=== PATIENT | female | born 1955 | race African-American/Black ===

== ENCOUNTER 2017-04-21 00:23 | Emergency (ER) | payer OTHER ==
[~2017-04-21] VITALS: Ht 154.9 cm; Wt 72.6 kg
[~2017-04-21 00:23] MED LIST: ALBUTEROL; BACITRACIN15 GM TOPIC; BACTRIM-DS1 EA ORAL; BACTRIM-DS1 EA PO; DYAZIDE1 CAP ORAL; GABAPENTIN800 MG ORAL; GLIPIZIDE5 MG ORAL; IBUPROFEN600 MG ORAL; LISINOPRIL20 MG ORAL; METFORMIN HCL500 M1 ORAL; NIFEDICAL XL30 MG ORAL; NORCO 10-325 T1 EACH ORAL; NORCO 5-325 TA1 EACH ORAL; UNOBMED; VALIUM10 MG ORAL; VENTOLIN HFA18 GM INH
[2017-04-21] MEDS ORDERED: HYDROmorphone 1mg/ml Carpuject IM ONE (01:15)
[2017-04-21] MEDS ORDERED: DURAGESIC1 EAC2 TDERMAL (02:24)
--- NOTE | 2017-04-21 02:24 | Emergency Room Report ---
History of Present Illness General Chief Complaint: Lower Extremity Injury Source: Patient Present Illness HPI Is a 61-year-old female with history of diabetes, hypertension, degenerative disc disease. She has a history of chronic pain and is on Finley and gabapentin. He presents with chief complaint of severe right leg pain. She was bending over and felt pain from her back going down her right leg. Pain is severe 10 out of 10. No relief with Finley or gabapentin. No incontinence of bowel or urine. Does have a history of chronic pain this is worse than before. No other complaint. No trauma. Allergies: Coded Allergies: ACETAMINOPHEN (Verified Allergy, Severe, Anaphylaxis, 07/09/12) CODEINE (Verified Allergy, Severe, Anaphylaxis, 07/09/12) HYDROCODONE BIT (Verified Allergy, Severe, Anaphylaxis, 07/09/12) IBUPROFEN (Verified Allergy, Severe, 03/12/13) PENICILLINS (Verified Allergy, Severe, Anaphylaxis, 07/09/12) TRAMADOL (Verified Allergy, Severe, 03/12/13) Patient History Past Medical History: see triage record, old chart reviewed, DM, HTN Past Surgical History: other Pertinent Family History: none Social History: Reports: smoking Last Menstrual Period: NA Now: No Immunizations: other Reviewed Nursing Documentation: PMH: Agreed, PSxH: Agreed Nursing Documentation-PMH Hx Hypertension: Yes Hx Pacemaker: No Hx Asthma: Yes Hx COPD: No Hx Diabetes: Yes Hx Cancer: No Hx Dialysis: No Hx Neurological Problems: No Hx Cerebrovascular Accident: No Hx Seizures: No Review of Systems Eye: Denies: blurred vision, eye pain ENT: Denies: ear pain, nose congestion, throat swelling Respiratory: Denies: cough, shortness of breath Cardiovascular: Denies: chest pain, palpitations Gastrointestinal: Denies: abdominal pain, diarrhea, nausea, vomiting Musculoskeletal: Reports: joint pain, muscle pain, Denies: back pain Skin: Denies: rash Neurological: Denies: headache, numbness Endocrine: Denies: increased thirst, increased urine Hematologic/Lymphatic: Denies: easy bruising All Other Systems: negative except mentioned in HPI Physical Exam Vital Signs Date Time Temp Pulse Resp B/P Pulse Ox O2 Delivery O2 Flow Rate FiO2 04/21/17 00:40 98.8 93 16 170/81 99 Room Air vitals with hypertension Sp02 EP Interpretation: reviewed, normal General Appearance: well appearing, no apparent distress, alert Head: normocephalic, atraumatic Eyes: bilateral eye EOMI, bilateral eye PERRL ENT: hearing grossly normal, normal pharynx Neck: full range of motion, supple, no meningismus Respiratory: chest non-tender, lungs clear, normal breath sounds Cardiovascular #1: regular rate, rhythm, no murmur Gastrointestinal: normal bowel sounds, non tender, no mass, no organomegaly, no bruit, non-distended Musculoskeletal: back normal, normal range of motion, tender - Diffuse tenderness to the right lower extremity. Neurologic: alert, oriented x3 Psychiatric: mood/affect normal Skin: warm/dry Medical Decision Making Diagnostic Impression: Primary Impression: Sciatica of right side Additional Impressions: Hypertension Qualified Codes: I10 - Essential (primary) hypertension Neuropathic pain ER Course Patient presents with exacerbation of chronic back pain. No evidence of cauda equina syndrome, spinal after abscess or neoplastic process. She felt better after Dilaudid. We'll discharge home. Last Vital Signs Date Time Temp Pulse Resp B/P Pulse Ox O2 Delivery O2 Flow Rate FiO2 04/21/17 00:40 98.8 93 16 170/81 99 Room Air Status: improved Disposition: HOME, SELF-CARE Condition: Stable Scripts Fentanyl 75MCG Patch* (DURAGESIC 75MCG*) 1 Each Patch.td72 1 PATCH TDERMAL EVERY 72 HOURS, #10 PATCH Prov: NELSY JEFFREY M.D. 04/21/17 Additional Instructions: Followup with your DrAnt in 7 days. Keep your appointment. Return if symptom worsen. NELSY JEFFREY M.D. Apr 21, 2017 02:24
[2017-04-21 02:34] VITALS: BP 164/83
[2017-04-21 05:15] VITALS: BP 164/83
== END 2017-04-21 02:34 | disposition home or self-care (01) ==
LOC: EMR 01:00
DX: M54.31 Sciatica, right side (principal); I10 Essential (primary) hypertension; J45.909 Unspecified asthma, uncomplicated; E13.40 Other specified diabetes mellitus with diabetic neuropathy, unspecified; F17.200 Nicotine dependence, unspecified, uncomplicated; Z88.6 Allergy status to analgesic agent; Z88.0 Allergy status to penicillin
CPT/HCPCS: 96372; 99283; J1170

== ENCOUNTER 2018-07-24 08:20 | Emergency (ER) | payer OTHER ==
[~2018-07-24] VITALS: Ht 154.9 cm; Wt 73.5 kg
[~2018-07-24 08:20] MED LIST changes: +DURAGESIC1 EAC2 TDERMAL
[2018-07-24] MEDS ORDERED: LORazepam Inj 2mg/ml 1ml IV ONE ×2 (08:45→10:30)
[2018-07-24 08:59] VITALS: BP 176/105
--- NOTE | 2018-07-24 09:10 | Emergency Room Report ---
History of Present Illness General Chief Complaint: Nausea, Vomiting, and Diarrhea Source: Patient, Medical Record Present Illness HPI 63-year-old female presents ED for evaluation. Patient brought in for vomiting and diarrhea 3 days. States she's been able to keep down any food. States she feels very anxious. Episodes of diarrhea. Denies chest pain or shortness of breath. Denies fevers or chills. Denies sick contacts or recent travel. No other aggravating relieving factors. Denies any other associated symptoms Allergies: Coded Allergies: ACETAMINOPHEN (Verified Allergy, Severe, Anaphylaxis, 07/09/12) CODEINE (Verified Allergy, Severe, Anaphylaxis, 07/09/12) HYDROCODONE BIT (Verified Allergy, Severe, Anaphylaxis, 07/09/12) IBUPROFEN (Verified Allergy, Severe, 03/12/13) PENICILLINS (Verified Allergy, Severe, Anaphylaxis, 07/09/12) TRAMADOL (Verified Allergy, Severe, 03/12/13) AMPICILLIN (Verified Allergy, Unknown, 07/24/18) Patient History Past Medical History: DM, HTN, asthma Past Surgical History: none Pertinent Family History: none Social History: Denies: smoking, alcohol use, drug use Now: No Immunizations: UTD Reviewed Nursing Documentation: PMH: Agreed; PSxH: Agreed Nursing Documentation-PMH Past Medical History: No History, Except For Hx Hypertension: Yes Hx Pacemaker: No Hx Asthma: Yes Hx COPD: No Hx Diabetes: Yes Hx Cancer: No Hx Dialysis: No Hx Neurological Problems: No Hx Cerebrovascular Accident: No Hx Seizures: No Review of Systems All Other Systems: negative except mentioned in HPI Physical Exam Vital Signs Date Time Temp Pulse Resp B/P (MAP) Pulse Ox O2 Delivery O2 Flow Rate FiO2 07/24/18 08:23 97.4 103 18 176/105 97 Room Air 97.3 Sp02 EP Interpretation: reviewed, normal General Appearance: no apparent distress, alert, GCS 15, non-toxic Head: normocephalic, atraumatic Eyes: bilateral eye normal inspection, bilateral eye PERRL ENT: hearing grossly normal, normal pharynx, no angioedema, normal voice Neck: full range of motion, supple/symm/no masses Respiratory: chest non-tender, lungs clear, normal breath sounds, speaking full sentences Cardiovascular #1: regular rate, rhythm, no edema Cardiovascular #2: 2+ carotid (R), 2+ carotid (L), 2+ radial (R), 2+ radial (L) , 2+ dorsalis pedis (R), 2+ dorsalis pedis (L) Gastrointestinal: normal bowel sounds, non tender, soft, non-distended, no guarding, no rebound Rectal: deferred Genitourinary: normal inspection, no CVA tenderness Musculoskeletal: back normal, gait/station normal, normal range of motion, non- tender Neurologic: alert, oriented x3, responsive, motor strength/tone normal, sensory intact, speech normal Psychiatric: judgement/insight normal, memory normal, no suicidal/homicidal ideation, anxious Reflexes: 3+ bicep (R), 3+ bicep (L), 3+ tricep (R), 3+ tricep (L), 3+ knee (R) , 3+ knee (L) Skin: normal color, no rash, warm/dry, well hydrated Lymphatic: no adenopathy Medical Decision Making Diagnostic Impression: Primary Impression: Gastroenteritis Additional Impressions: Hypertension Qualified Codes: I10 - Essential (primary) hypertension Anxiety ER Course Hospital Course 63-year-old F presents to ED with vomiting, diarrhea differential diagnosis: gastritis, SBO, cholecystits, gastroenteritis Clinical course Patient placed on stretcher. On security monitor. After initial history and physical I ordered labs, IV fluids, Zofran, pepcid and ativan Labs - no leukocytosis, electrolytes ok, LFTs normal, trop negative, UA unremarkable EKG - sinus tachycardia, PVCs noted Upon reassessment, patient states she feels better. Hypertensive/tachycardic. Has not taken her medication a few days because of the vomiting. Given Cardizem here with blood pressure, heart rate improved. Patient is requesting discharge. I believe patient is safe for discharge close outpatient follow-up. Discussed with patient and family I feel this is a highly complex case requiring extensive working including EKG/ Rhythm strip, Xray/CT/US, Blood/urine lab work, repeat exams while in ED, and administration of strong opiates/narcotics for pain control, admission to hospital or close patient follow up. Diagnosis - gastroenteritis, hypertension, anxiety Stable and discharged to home with prescriptions for Zantac, zofran, bentyl. Followup with PMD. Return to ED if symptoms recur or worsen Labs Test 07/24/18 08:55 07/24/18 09:39 White Blood Count 7.0 K/UL (4.8-10.8) Red Blood Count 4.36 M/UL (4.20-5.40) Hemoglobin 14.1 G/DL (12.0-16.0) Hematocrit 41.2 % (37.0-47.0) Mean Corpuscular Volume 95 FL (80-99) Mean Corpuscular Hemoglobin 32.4 PG (27.0-31.0) Mean Corpuscular Hemoglobin Concent 34.2 G/DL (32.0-36.0) Red Cell Distribution Width 12.5 % (11.6-14.8) Platelet Count 293 K/UL (150-450) Mean Platelet Volume 10.5 FL (6.5-10.1) Neutrophils (%) (Auto) 63.6 % (45.0-75.0) Lymphocytes (%) (Auto) 29.5 % (20.0-45.0) Monocytes (%) (Auto) 5.2 % (1.0-10.0) Eosinophils (%) (Auto) 0.3 % (0.0-3.0) Basophils (%) (Auto) 1.4 % (0.0-2.0) Sodium Level 139 MMOL/L (136-145) Potassium Level 3.6 MMOL/L (3.5-5.1) Chloride Level 100 MMOL/L (98-107) Carbon Dioxide Level 28 MMOL/L (21-32) Anion Gap 11 mmol/L (5-15) Blood Urea Nitrogen 22 mg/dL (7-18) Creatinine 1.2 MG/DL (0.55-1.30) Estimat Glomerular Filtration Rate 54.9 mL/min (>60) Glucose Level 240 MG/DL (74-106) Calcium Level 10.1 MG/DL (8.5-10.1) Total Bilirubin 0.4 MG/DL (0.2-1.0) Aspartate Amino Transf (AST/SGOT) 18 U/L (15-37) Alanine Aminotransferase (ALT/SGPT) 22 U/L (12-78) Alkaline Phosphatase 87 U/L (46-116) Troponin I 0.016 ng/mL (0.000-0.056) Total Protein 8.2 G/DL (6.4-8.2) Albumin 4.0 G/DL (3.4-5.0) Globulin 4.2 g/dL Albumin/Globulin Ratio 1.0 (1.0-2.7) Lipase 56 U/L (73-393) Urine Color Pale yellow Urine Appearance Slightly cloudy Urine pH 7 (4.5-8.0) Urine Specific [place] 1.010 (1.005-1.035) Urine Protein 4+ (NEGATIVE) Urine Glucose (UA) 3+ (NEGATIVE) Urine Ketones 3+ (NEGATIVE) Urine Blood 2+ (NEGATIVE) Urine Nitrite Negative (NEGATIVE) Urine Bilirubin Negative (NEGATIVE) Urine Urobilinogen Normal MG/DL (0.0-1.0) Urine Leukocyte Esterase Negative (NEGATIVE) Urine RBC 2-4 /HPF (0 - 2) Urine WBC 2-4 /HPF (0 - 2) Urine Squamous Epithelial Cells Moderate /LPF (NONE/OCC) Urine Bacteria Few /HPF (NONE) EKG Diagnostic Results Rate: tachycardiac Rhythm: NSR ST Segments: no acute changes ASA given to the pt in ED: No Rhythm Strip Diag. Results EP Interpretation: yes Rhythm: NSR, no ectopy Last Vital Signs Date Time Temp Pulse Resp B/P (MAP) Pulse Ox O2 Delivery O2 Flow Rate FiO2 07/24/18 08:59 97.3 103 18 176/105 99 Room Air 97.3 Status: improved Disposition: HOME, SELF-CARE Condition: Stable Scripts Dicyclomine Hcl* (DICYCLOMINE HCL*) 10 Mg Capsule 10 MG PO QID, #20 CAP Prov: Navi Wilcox MD 07/24/18 Ranitidine Hcl* (ZANTAC*) 150 Mg Tablet 150 MG ORAL TWICE A DAY, #30 TAB Prov: Navi Wilcox MD 07/24/18 Ondansetron Odt* (ZOFRAN ODT*) 4 Mg Tab.rapdis 4 MG BC EVERY 6 HOURS PRN for Nausea & Vomiting, #20 TAB 0 Refills Prov: Navi Wilcox MD 07/24/18 Referrals: [facility],REFERRING (PCP) Navi Wilcox MD Jul 24, 2018 09:10
[2018-07-24 09:23] LABS: BASOPHILS % (AUTO) 1.4 % (0.0-2.0); EOSINOPHILS % (AUTO) 0.3 % (0.0-3.0); HEMATOCRIT 41.2 % (37.0-47.0); HEMOGLOBIN 14.1 G/DL (12.0-16.0); LYMPHOCYTES % (AUTO) 29.5 % (20.0-45.0); MEAN CORPUSCULAR VOLUME 95 FL (80-99); MONOCYTES % (AUTO) 5.2 % (1.0-10.0); NEUTROPHILS % (AUTO) 63.6 % (45.0-75.0); PLATELET COUNT 293 K/UL (150-450); RED BLOOD COUNT 4.36 M/UL (4.20-5.40); RED CELL DISTRIBUTION WIDTH 12.5 % (11.6-14.8)
[2018-07-24 09:35] LABS: ANION GAP 11 mmol/L (5-15); BLOOD UREA NITROGEN 22 mg/dL (7-18); CALCIUM 10.1 MG/DL (8.5-10.1); CARBON DIOXIDE 28 MMOL/L (21-32); CHLORIDE 100 MMOL/L (98-107); CREATININE 1.2 MG/DL (0.55-1.30); POTASSIUM 3.6 MMOL/L (3.5-5.1); SODIUM 139 MMOL/L (136-145)
[2018-07-24 09:40] LABS: ALANINE AMINOTRANSFERASE 22 U/L (12-78); ALKALINE PHOSPHATASE 87 U/L (46-116); ASPARTATE AMINO TRANSFERASE 18 U/L (15-37); BILIRUBIN,TOTAL 0.4 MG/DL (0.2-1.0)
[2018-07-24 10:00] LABS: BILIRUBIN, URINE NEGATIVE (NEGATIVE); COLOR,URINE PALE YELLOW; GLUCOSE, URINE (UA) 3+ (NEGATIVE); KETONES,URINE 3+ (NEGATIVE); LEUKOCYTE ESTERASE ,URINE NEGATIVE (NEGATIVE); NITRITE,URINE NEGATIVE (NEGATIVE); PH,URINE 7 (4.5-8.0); PROTEIN,URINE 4+ (NEGATIVE); UROBILINOGEN,URINE NORMAL MG/DL (0.0-1.0)
[2018-07-24 10:03] LABS: APPEARANCE,URINE SLIGHTLY CLOUDY
[2018-07-24] MEDS ORDERED: Metoclopramide 10mg/2ml Inj IVP ONE (10:30)
[2018-07-24] MEDS ORDERED: Sodium Chloride 500ML 550 ML IV SCH (11:15)
[2018-07-24] MEDS ORDERED: dilTIAZem HCl 25mg/5ml Inj IVP ONE (11:15)
[2018-07-24] MEDS ORDERED: DICYCLOMINE HCL10 MG PO (11:34)
[2018-07-24] MEDS ORDERED: ONDANSETRON ODT4 MG BC (11:34)
[2018-07-24] MEDS ORDERED: RANITIDINE HCL150 MG ORAL (11:34)
[2018-07-24 11:35] VITALS: BP 164/72
[2018-07-24 11:41] VITALS: BP 164/72
--- NOTE | 2018-07-28 12:22 | Cardiology Report ---
APPROVED REPORT EKG Measurement Heart [id number] Sinus tachycardia with frequent, and consecutive premature ventricular complexes Nonspecific T wave abnormality Abnormal ECG
== END 2018-07-24 11:41 | disposition home or self-care (01) ==
LOC: EMR 08:31
DX: K52.9 Noninfective gastroenteritis and colitis, unspecified (principal); I10 Essential (primary) hypertension; F41.9 Anxiety disorder, unspecified; J45.909 Unspecified asthma, uncomplicated; E11.9 Type 2 diabetes mellitus without complications; Z88.6 Allergy status to analgesic agent; Z88.0 Allergy status to penicillin; Z88.5 Allergy status to narcotic agent
CPT/HCPCS: 36415; 80053; 81003; 83690; 84484; 85025; 93005; 96361; 96374; 96375; 96376; 99284; J2405; J2765; S0028

== ENCOUNTER 2018-11-23 15:22 | Emergency (ER) | payer OTHER ==
[~2018-11-23] VITALS: Ht 160 cm; Wt 104.3 kg
[2018-11-23] VITALS (10 sets, daily range): BP systolic 111–218; BP diastolic 55–136
[~2018-11-23 15:22] MED LIST changes: +DICYCLOMINE HCL10 MG PO; +ONDANSETRON ODT4 MG BC; +RANITIDINE HCL150 MG ORAL
--- NOTE | 2018-11-23 15:34 | NUR ---
ED Nurse Note: PT WALKED IN TO ER TODAY FROM HOME. AOX4. PT C/O GENERALIZED RIGHT SIDED PAIN, 10/10 X YESTERDAY. PT DENIES INJURY OR TRAUMA. FULL ROM OF ALL EXTREMITIES AND 5/5 MUSCLE STRENGTH. PT IS TACHYCARDIC AT BEDSIDE: 115BPM WITH ELEVATED BP: 218/136. DR DAVID AT BEDSIDE FOR EVALUATION.
[2018-11-23] MEDS ORDERED: carBAMazepine 200mg tab ORAL ONE (15:45)
[2018-11-23] MEDS ORDERED: Metoprolol 5mg/5ml Inj IVP ONE ×2 (15:45→17:30)
--- NOTE | 2018-11-23 15:57 | Emergency Room Report ---
History of Present Illness General Chief Complaint: Pain Source: Medical Record Present Illness HPI Patient is an 63-year-old female presented for increased generalized body pain. Patient was noted to have prior history of chronic pain. She reports of increased pain to her toes. She had previous history of gout and hypertension. She reports being compliant with her medications and takes multiple medications for blood pressure. She reports having some increased headache. Allergies: Coded Allergies: ACETAMINOPHEN (Verified Allergy, Severe, Anaphylaxis, 07/09/12) CODEINE (Verified Allergy, Severe, Anaphylaxis, 07/09/12) HYDROCODONE BIT (Verified Allergy, Severe, Anaphylaxis, 07/09/12) IBUPROFEN (Verified Allergy, Severe, 03/12/13) PENICILLINS (Verified Allergy, Severe, Anaphylaxis, 07/09/12) AMPICILLIN (Verified Allergy, Unknown, 07/24/18) Patient History Past Medical History: see triage record Last Menstrual Period: n/a Reviewed Nursing Documentation: PMH: Agreed; PSxH: Agreed Nursing Documentation-PMH Past Medical History: No History, Except For Hx Hypertension: Yes Hx Pacemaker: No Hx Asthma: Yes Hx COPD: No Hx Diabetes: Yes Hx Cancer: No Hx Dialysis: No Hx Neurological Problems: No Hx Cerebrovascular Accident: No Hx Seizures: No Review of Systems All Other Systems: negative except mentioned in HPI Physical Exam Vital Signs Date Time Temp Pulse Resp B/P (MAP) Pulse Ox O2 Delivery O2 Flow Rate FiO2 11/23/18 15:33 98.2 118 19 218/136 100 11/23/18 15:34 Room Air Sp02 EP Interpretation: reviewed, normal General Appearance: normal inspection, alert, GCS 15, obese, Chronically Ill Head: atraumatic, other - scalp lesions ENT: normal ENT inspection, hearing grossly normal, normal voice Neck: normal inspection, full range of motion, supple, no bony tend Respiratory: normal inspection, lungs clear, normal breath sounds, no respiratory distress, no retraction, no wheezing Cardiovascular #1: regular rate, rhythm, no edema Gastrointestinal: normal inspection, normal bowel sounds, non tender, soft, no guarding, no hernia Genitourinary: no CVA tenderness Musculoskeletal: normal inspection, back normal, decreased range of motion Neurologic: normal inspection, alert, oriented x3, responsive, job service specialist III-XII nml as tested, speech normal Psychiatric: normal inspection, judgement/insight normal, mood/affect normal Skin: other - toenail discoloration Medical Decision Making Diagnostic Impression: Primary Impression: Malignant essential hypertension Additional Impressions: Bigeminy Chronic pain ER Course Patient is a 63-year-old female who presented after increased generalized pain. Patient reports having prior history of hypertension. Differential diagnosis include was not limited to medication withdrawal, CVA, hypertensive crisis, drug abuse among others. Because of complexity of patient's case laboratory testing and imaging studies were ordered. Patient was noted to have prior history of chronic pain and was given medications for anxiety as well as for pain medications. Patient was noted to be markedly hypertensive and was given IV metoprolol with some initial improvement. Patient was also given IV magnesium and patient was noted to have fairly frequent PVCs.Patient was noted to have continued market elevation of her diastolic blood pressure. She was also given oral clonidine.Patient was discussed with the patient has been for [facility] who agreed to accept the patient in transfer Labs Test 11/23/18 15:20 11/23/18 15:45 White Blood Count 8.6 K/UL (4.8-10.8) Red Blood Count 3.51 M/UL (4.20-5.40) Hemoglobin 11.0 G/DL (12.0-16.0) Hematocrit 32.9 % (37.0-47.0) Mean Corpuscular Volume 94 FL (80-99) Mean Corpuscular Hemoglobin 31.2 PG (27.0-31.0) Mean Corpuscular Hemoglobin Concent 33.3 G/DL (32.0-36.0) Red Cell Distribution Width 12.0 % (11.6-14.8) Platelet Count 256 K/UL (150-450) Mean Platelet Volume 8.1 FL (6.5-10.1) Neutrophils (%) (Auto) 63.5 % (45.0-75.0) Lymphocytes (%) (Auto) 28.7 % (20.0-45.0) Monocytes (%) (Auto) 5.6 % (1.0-10.0) Eosinophils (%) (Auto) 0.9 % (0.0-3.0) Basophils (%) (Auto) 1.3 % (0.0-2.0) Prothrombin Time 9.4 SEC (9.30-11.50) Prothromb Time International Ratio 0.9 (0.9-1.1) Activated Partial Thromboplast Time 26 SEC (23-33) Urine Color Pale yellow Urine Appearance Clear Urine pH 7 (4.5-8.0) Urine Specific [place] 1.010 (1.005-1.035) Urine Protein 4+ (NEGATIVE) Urine Glucose (UA) 2+ (NEGATIVE) Urine Ketones Negative (NEGATIVE) Urine Blood 2+ (NEGATIVE) Urine Nitrite Negative (NEGATIVE) Urine Bilirubin Negative (NEGATIVE) Urine Urobilinogen Normal MG/DL (0.0-1.0) Urine Leukocyte Esterase Negative (NEGATIVE) Urine RBC 2-4 /HPF (0 - 2) Urine WBC 0-2 /HPF (0 - 2) Urine Squamous Epithelial Cells Few /LPF (NONE/OCC) Urine Bacteria Few /HPF (NONE) Sodium Level 140 MMOL/L (136-145) Potassium Level 4.6 MMOL/L (3.5-5.1) Chloride Level 103 MMOL/L (98-107) Carbon Dioxide Level 28 MMOL/L (21-32) Anion Gap 9 mmol/L (5-15) Blood Urea Nitrogen 30 mg/dL (7-18) Creatinine 1.5 MG/DL (0.55-1.30) Estimat Glomerular Filtration Rate 42.3 mL/min (>60) Glucose Level 234 MG/DL (74-106) Calcium Level 9.9 MG/DL (8.5-10.1) Total Bilirubin 0.4 MG/DL (0.2-1.0) Aspartate Amino Transf (AST/SGOT) 23 U/L (15-37) Alanine Aminotransferase (ALT/SGPT) 26 U/L (12-78) Alkaline Phosphatase 113 U/L (46-116) Troponin I 0.015 ng/mL (0.000-0.056) Pro-B-Type Natriuretic Peptide 2395 pg/mL (0-125) Total Protein 8.4 G/DL (6.4-8.2) Albumin 3.8 G/DL (3.4-5.0) Globulin 4.6 g/dL Albumin/Globulin Ratio 0.8 (1.0-2.7) Thyroid Stimulating Hormone (TSH) 1.009 uiU/mL (0.358-3.740) Urine Opiates Screen Negative (NEGATIVE) Urine Barbiturates Screen Negative (NEGATIVE) Phencyclidine (PCP) Screen Negative (NEGATIVE) Urine Amphetamines Screen Negative (NEGATIVE) Urine Benzodiazepines Screen Negative (NEGATIVE) Urine Cocaine Screen Negative (NEGATIVE) Urine Marijuana (THC) Screen Positive (NEGATIVE) EKG Diagnostic Results Rate: normal Rhythm: NSR ST Segments: other - frequent pvcs Rhythm Strip Diag. Results EP Interpretation: yes Rhythm: NSR, other - frequent pvcs Last Vital Signs Date Time Temp Pulse Resp B/P (MAP) Pulse Ox O2 Delivery O2 Flow Rate FiO2 11/23/18 15:52 115 238/111 11/23/18 15:34 98.3 18 100 Room Air Status: unchanged Disposition: ADMITTED INPATIENT Condition: Stable Donta Villalta MD Nov 23, 2018 15:57
--- NOTE | 2018-11-23 15:58 | NUR ---
ED Nurse Note: PT TO CT VIA OBI
[2018-11-23 16:06] LABS: INR 0.9 (0.9-1.1)
--- NOTE | 2018-11-23 16:13 | NUR ---
ED Nurse Note: PT BACK FROM CT VIA OBI.
[2018-11-23 16:15] LABS: ANION GAP 9 mmol/L (5-15); BLOOD UREA NITROGEN 30 mg/dL (7-18); CALCIUM 9.9 MG/DL (8.5-10.1); CARBON DIOXIDE 28 MMOL/L (21-32); CHLORIDE 103 MMOL/L (98-107); CREATININE 1.5 MG/DL (0.55-1.30); POTASSIUM 4.6 MMOL/L (3.5-5.1); SODIUM 140 MMOL/L (136-145)
--- NOTE | 2018-11-23 16:21 | NUR ---
ED Nurse Note: CBC REDRAWN AND SENT TO LAB.
[2018-11-23 16:27] LABS: ALANINE AMINOTRANSFERASE 26 U/L (12-78); ALBUMIN 3.8 G/DL (3.4-5.0); ALBUMIN/GLOBULIN RATIO 0.8 (1.0-2.7); ALKALINE PHOSPHATASE 113 U/L (46-116); ASPARTATE AMINO TRANSFERASE 23 U/L (15-37); BILIRUBIN,TOTAL 0.4 MG/DL (0.2-1.0)
--- NOTE | 2018-11-23 16:30 | NUR ---
ED Nurse Note: URINE COLLECTED AND SENT TO LAB.
[2018-11-23 16:38] LABS: BASOPHILS % (AUTO) 1.3 % (0.0-2.0); EOSINOPHILS % (AUTO) 0.9 % (0.0-3.0); HEMATOCRIT 32.9 % (37.0-47.0); LYMPHOCYTES % (AUTO) 28.7 % (20.0-45.0); MEAN CORPUSCULAR VOLUME 94 FL (80-99); MONOCYTES % (AUTO) 5.6 % (1.0-10.0); NEUTROPHILS % (AUTO) 63.5 % (45.0-75.0); PLATELET COUNT 256 K/UL (150-450); RED BLOOD COUNT 3.51 M/UL (4.20-5.40); WHITE BLOOD COUNT 8.6 K/UL (4.8-10.8)
--- NOTE | 2018-11-23 16:48 | Diagnostic Imaging Report ---
EXAM: CT Head Without Intravenous Contrast CLINICAL HISTORY: PAIN TECHNIQUE: Axial computed tomography images of the head/brain without intravenous contrast. CTDI is 70.38 mGy and DLP is 1449 mGy-cm. One or more of the following dose reduction techniques were used: automated exposure control, adjustment of the mA and/or kV according to patient size, use of iterative reconstruction technique. COMPARISON: CT head 06/05/16 FINDINGS: No intracranial hemorrhage, abnormal intra- or extra-axial collections or parenchymal lesions are seen. There are involutional changes with prominence of the sulci, basal cisterns and ventricles. Scattered white matter hypoattenuations are present, likely from small vessel disease. The newberry-white differentiation is preserved. No evidence of mass effect, midline shift, or edema. High left scalp soft tissue induration, about 1.1 x 2.1 cm, axial images 29 and 30. May be contusion, if there is been trauma, cannot exclude infection or ill-defined soft tissue mass. The osseous structures are unremarkable. The visualized portions of the paranasal sinuses are clear. IMPRESSION: 1. No acute intracranial process. 2. Involutional changes with small vessel disease. 3. High left scalp soft tissue induration, about 1.1 x 2.1 cm, axial images 29 and 30. May be contusion, if there is been trauma, cannot exclude infection or ill-defined soft tissue mass.
[2018-11-23 16:49] LABS: APPEARANCE,URINE CLEAR; BILIRUBIN, URINE NEGATIVE (NEGATIVE); COLOR,URINE PALE YELLOW; GLUCOSE, URINE (UA) 2+ (NEGATIVE); KETONES,URINE NEGATIVE (NEGATIVE); LEUKOCYTE ESTERASE ,URINE NEGATIVE (NEGATIVE); NITRITE,URINE NEGATIVE (NEGATIVE); PH,URINE 7 (4.5-8.0); PROTEIN,URINE 4+ (NEGATIVE); UROBILINOGEN,URINE NORMAL MG/DL (0.0-1.0)
[2018-11-23] MEDS ORDERED: traMADol 50mg tab ORAL ONE (17:15)
[2018-11-23] MEDS ORDERED: Metoprolol 5mg/5ml Inj ONE (17:25)
[2018-11-23] MEDS ORDERED: Morphine Sulfate 2mg/ml Inj ONE (17:35)
[2018-11-23] MEDS ORDERED: Morphine Sulfate 2mg/ml Inj IVP ONE (17:45)
[2018-11-23] MEDS ORDERED: LORazepam Inj 2mg/ml 1ml IV ONE (17:45)
--- NOTE | 2018-11-23 18:56 | NUR ---
ED Nurse Note: DAUGHTER, KAUSHIK: [phone]
[2018-11-23] MEDS ORDERED: LIPITOR40 MG ORAL (18:59)
[2018-11-23] MEDS ORDERED: ASPIR 8181 MG ORAL (18:59)
[2018-11-23] MEDS ORDERED: KENALOG1 APPLIC TOPIC (18:59)
[2018-11-23] MEDS ORDERED: CILOSTAZOL100 MG PO (18:59)
[2018-11-23] MEDS ORDERED: TRAMADOL HCL50 MG ORAL (18:59)
[2018-11-23] MEDS ORDERED: ULORIC40 MG ORAL (18:59)
[2018-11-23] MEDS ORDERED: LANTUS SOL100 UNIT/1 SUBQ (18:59)
[2018-11-23] MEDS ORDERED: ACETAMINOPHEN1 EACH ORAL (18:59)
[2018-11-23] MEDS ORDERED: COLACE100 MG ORAL (18:59)
[2018-11-23] MEDS ORDERED: ATIVAN2 MG ORAL (18:59)
[2018-11-23] MEDS ORDERED: CALCIUM CARBON650 M2 PO (18:59)
[2018-11-23] MEDS ORDERED: CARDIZEM30 M1 PO (18:59)
[2018-11-23] MEDS ORDERED: COENZYME Q10100 MG PO (18:59)
--- NOTE | 2018-11-23 19:02 | NUR ---
ED Nurse Note: REPORT GIVEN TO KRYSTLE AMADOR.
--- NOTE | 2018-11-23 20:33 | NUR ---
ER Nurse Note: Pt a&ox4,VSS, no signs of distress. Pt does not complain of pain. Explained plan of care, transfer arrangements and signed the form. Pt calm and cooperative. All pt needs met; all safety measures met. Will continue to monitor.
[2018-11-23] MEDS ORDERED: DiphenhydrAMINE 25mg/10ml Elixir ORAL ONE (21:45)
--- NOTE | 2018-11-23 22:02 | NUR ---
ER Nurse Note: pt refused medication; stated it makes her feel sick. ERMD aware. Will continue to monitor and awaiting transport.
--- NOTE | 2018-11-23 22:50 | NUR ---
ER Nurse Note: [facility] Pt a&ox4, VSS, no signs of distress. Pt left with all belongings.
== END 2018-11-23 22:50 | disposition other institution (70) ==
LOC: EMR 16:11 → EDBEDREQ 18:25 → EMR 22:50
DX: I10 Essential (primary) hypertension (principal); R00.8 Other abnormalities of heart beat; G89.29 Other chronic pain; E11.9 Type 2 diabetes mellitus without complications; J45.909 Unspecified asthma, uncomplicated; R51 Headache; Z88.6 Allergy status to analgesic agent; Z88.0 Allergy status to penicillin; Z88.5 Allergy status to narcotic agent
CPT/HCPCS: 36415; 70450; 80053; 80307; 81001; 83880; 84443; 84484; 85025; 85610; 85730; 96365; 96375; 96376; 99285; J1940; J2270